=== PATIENT | female | born 1955 | race Caucasian/White ===

== ENCOUNTER 2016-10-06 09:58 | Day surgery (SDC) | payer MEDICARE ==
[~2016-10-06] VITALS: Ht 162.6 cm; Wt 129.5 kg
--- NOTE | ~2016-10-06 | OP ---
PATIENT NAME: VAISHNAVI MARIN MEDICAL RECORD: [id number] :51 LOCATION:D.[facility] ADMISSION DATE: SURGEON: ABRAM MELO DO DATE OF OPERATION: 10/06/2016 PROCEDURE: EGD with biopsies. INDICATIONS FOR PROCEDURE: Heartburn and guaiac positive stools. SCOPE: [employer] video gastroscope. MEDICATIONS: Propofol 250 mg IV per anesthesia. ESTIMATED BLOOD LOSS: Minimal. COMPLICATIONS: None. FINDINGS: Informed consent was given. The patient was made comfortable with the above medication. After reaching an adequate level of sedation by slow IV push, the patient was placed on her left side. The endoscope was then advanced under direct visualization through the mouth to the second portion of the duodenum. The upper, middle, and lower thirds of the esophagus appeared normal. At the GE junction, there was very mild evidence of LA class A reflux-induced esophagitis. Scope was advanced beyond the GE junction into the stomach and retroflexed to view the cardia, which appeared normal. The fundus and body of the stomach appeared normal as well. The endoscope was passed along into the antrum and prepyloric region, which revealed normal mucosa. Scope was advanced beyond the pylorus into the duodenum where the bulb and second portion of the duodenum appeared normal. The endoscope was then withdrawn from the patient. The patient tolerated the procedure well and there were no complications. IMPRESSION: 1. LA class A reflux-induced esophagitis, which is very mild. PLAN AND RECOMMENDATIONS: 1. Discharge home when recovery parameters are met. 2. Continue current diet. 3. Change medication regimen to Protonix 40 mg capsules in the a.m. and ranitidine 150 mg 1 tablet at bedtime. 4. Proceed with colonoscopy as scheduled. 5. Notify the GI clinic if the change in medications does not help the heartburn symptoms. 6. Follow up biopsy specimen results. TRANSINT:[id number] Voice Confirmation ID: [id number] DOCUMENT ID: [id number] ABRAM MELO DO CC: [id number] DICTATION DATE: 10/06/16 1248 [employer] SUPERVISOR: 10/06/168 [facility] 10/06/16 [id number] [place] [address]
[2016-10-06] MEDS ORDERED: NAPROSYN500 MG PO (10:57)
[2016-10-06] MEDS ORDERED: ZANTAC150 MG PO (10:57)
[2016-10-06] MEDS ORDERED: OS-CAL500 MG PO (11:01)
[2016-10-06] MEDS ORDERED: VITAMIN B-12500 MCG PO (11:01)
[2016-10-06] MEDS ORDERED: OCUVITE TABLET1 TA1 PO (11:02)
[2016-10-06 11:08] VITALS: BP 168/87; Ht 162.6 cm; Wt 129.5 kg
[2016-10-06 11:14] LABS: HEMOGLOBIN 13.7 g/dL (12-16); MCH 29.3 pg (26.0-34.0); MCHC 33.4 g/dL (31.0-37.0); MCV 87.8 fL (80.0-100.0); MEAN PLATELET VOLUME 10.9 fL (7.4-10.4); RBC 4.67 10x6/uL (4.00-5.40); WBC 6.2 10x3/uL (4.8-10.8)
--- NOTE | 2016-10-06 13:53 | NUR ---
7750 DISCHARGE INSTRUCTIONS COMPLETE. PRESCRIPTION FOR PROTONIX GIVEN. ESCORTED OUT BY VOLUNTEER.
== END 2016-10-06 13:45 | disposition home or self-care (01) ==
LOC: D.OPS 09:58 → EDSEX 12:00 → D.OPS 12:00
PROVIDERS: Anesthesiology
DX: R19.5 Other fecal abnormalities (principal); K21.0 Gastro-esophageal reflux disease with esophagitis; E66.01 Morbid (severe) obesity due to excess calories; Z68.42 Body mass index [BMI] 45.0-49.9, adult

== ENCOUNTER 2016-10-17 09:55 | Day surgery (SDC) | payer MEDICARE ==
[~2016-10-17] VITALS: Ht 162.6 cm; Wt 130.5 kg
[~2016-10-17 09:55] MED LIST: NAPROSYN500 MG PO; OCUVITE TABLET1 TA1 PO; OS-CAL500 MG PO; VITAMIN B-12500 MCG PO; ZANTAC150 MG PO
[2016-10-17] MEDS ORDERED: PROTONIX40 MG PO (10:37)
[2016-10-17] MEDS ORDERED: AREDS 2 (10:40)
[2016-10-17] MEDS ORDERED: [UNRECOGNIZED DRUG - OTHER] (10:42)
[2016-10-17] MEDS ORDERED: MAGNESIUM (10:42)
[2016-10-17] MEDS ORDERED: CALCIUM (10:42)
[2016-10-17 11:00] VITALS: BP 126/81; Ht 162.6 cm; Wt 130.5 kg
[2016-10-17 11:20] LABS: ANION GAP 12.4 mmol/L (8-16); CALCIUM 8.4 mg/dL (8.5-10.1); CARBON DIOXIDE 29.4 mmol/L (21.0-32.0); CREATININE - SERUM 0.9 mg/dL (0.6-1.3); POTASSIUM - SERUM 3.8 mmol/L (3.5-5.1)
[2016-10-17 11:21] LABS: BASOPHILS 0.3 % (0-2); EOSINOPHILS 1.6 % (0-7); HEMATOCRIT 40.8 % (36.0-48.0); HEMOGLOBIN 13.4 g/dL (12-16); IMMATURE GRANULOCYTES 0.1 % (0-5); LYMPHOCYTES 25.4 % (15-50); MCHC 32.8 g/dL (31.0-37.0); MCV 88.3 fL (80.0-100.0); MEAN PLATELET VOLUME 10.9 fL (7.4-10.4); MONOCYTES 6.8 % (2-11); NEUTROPHILS 65.8 % (40-80); PLATELET COUNT 240 10x3/uL (130-400); RBC 4.62 10x6/uL (4.00-5.40); RDW 13.1 % (11.5-14.5); WBC 6.7 10x3/uL (4.8-10.8)
--- NOTE | 2016-10-18 14:43 | OP ---
PATIENT NAME: VAISHNAVI MARIN MEDICAL RECORD: [id number] :51 LOCATION:D.[facility] ADMISSION DATE: SURGEON: ABRAM MELO DO DATE OF OPERATION: 10/17/2016 PROCEDURE: Colonoscopy with polypectomy. INDICATIONS FOR PROCEDURE: Occult blood in stools and constipation. SCOPE: [employer] video pediatric colonoscope. MEDICATIONS: Propofol 700 mg IV per anesthesia. WITHDRAWAL TIME: 10 minutes. ESTIMATED BLOOD LOSS: Minimal. COMPLICATIONS: None. FINDINGS: Informed consent was given. The patient was made comfortable with the above medication. After reaching an adequate level of sedation by slow IV push, the patient was placed on her left side. A digital rectal examination was performed and was normal other than visualization and palpation of external hemorrhoids. The endoscope was advanced under direct visualization through the rectum to the cecum with visualization of the appendiceal orifice and ileocecal valve. The scope was slowly withdrawn and mucosa was carefully examined. The prep quality was excellent. There were 2 polyps visualized on this examination. Both were benign-appearing and sessile and measured approximately 3-4 mm in diameter. The first polyp was located in the ascending colon and on the ileocecal valve. It was removed using hot forceps in 1 piece and completely retrieved. The second polyp was located in the rectum. It was removed in 1 piece using hot forceps and completely retrieved. There were no other findings on this examination. Retroflexion was performed in the rectum with visualization of some internal hemorrhoids. There was no bleeding visualized from the hemorrhoids themselves. The scope was withdrawn from the patient. The patient tolerated the procedure well and there were no complications. IMPRESSION: 1. Two polyps as described above, removed with hot forceps. 2. Internal and external hemorrhoids without bleeding. PLAN AND RECOMMENDATIONS: 1. Discharge home when recovery parameters are met. 2. Follow up biopsy specimen results. 3. High fiber diet. 4. Continue symptomatic treatment of occasional constipation with prunes as tolerated. 5. Consider pharmacologic therapy if constipation worsened well using prunes. This could include MiraLax 1 cap daily or other medications such as Linzess or Amitiza. 6. Recall colonoscopy in 5 years regarding the polyps removed. TRANSINT:[id number] Voice Confirmation ID: [id number] DOCUMENT ID: [id number] OPERATIVE REPORT [id number] VAISHNAVI MARIN ABRAM MELO DO at 1443 CC: [id number] DICTATION DATE: 10/17/16 1258 ENERGY TRADER: 10/17/16 1552 [facility] 10/17/16 [id number] [place] [address]
== END 2016-10-17 13:30 | disposition home or self-care (01) ==
LOC: D.OPS 09:55 → EDSEX 12:00 → D.OPS 13:30
PROVIDERS: Anesthesiology
DX: D12.2 Benign neoplasm of ascending colon (principal); K62.1 Rectal polyp; K64.8 Other hemorrhoids; K64.4 Residual hemorrhoidal skin tags; K59.00 Constipation, unspecified; Z01.812 Encounter for preprocedural laboratory examination